=== PATIENT | male | born 1980 | race African-American/Black ===

== ENCOUNTER 2021-08-19 00:42 | Emergency (ER) | payer MEDICAID ==
[~2021-08-19] VITALS: Ht 180.3 cm; Wt 120.3 kg
[2021-08-19 02:45] LABS: BASOPHILS % 0.5 % (0.0-2.0); EOSINOPHILS % 1.2 % (0.0-5.0); HEMATOCRIT. 42.6 % (42.0-52.0); MEAN CORPUSCULAR HEMOGLOBIN 28.7 pg (28.0-32.0); MEAN CORPUSCULAR VOLUME 86.8 fL (80.0-94.0); MEAN PLATELET VOLUME 9.4 fl (7.4-10.4); MONOCYTES % 10.3 % (2.0-8.0); PLATELET 148 x1000/uL (130-400); RED CELL DISTRIBUTION WIDTH 14.3 % (11.6-14.6)
[2021-08-19 02:48] LABS: CHLORIDE 107 mEq/L (98-107)
[2021-08-19 02:56] LABS: CLARITY URINE CLEAR (CLEAR); COLOR URINE YELLOW (YELLOW); KETONES URINE NEGATIVE (NEGATIVE); LEUKOCYTE ESTERASE URINE NEGATIVE (NEGATIVE); NITRITE URINE NEGATIVE (NEGATIVE); OCCULT BLOOD URINE NEGATIVE (NEGATIVE); PH URINE 5.5 (4.5-8.0); PROTEIN URINE NEGATIVE (NEGATIVE); SPECIFIC GRAVITY URINE 1.015 (1.005-1.030); UROBILINOGEN URINE 0.2 E.U./dL (0.2-1.0)
[2021-08-19] MEDS ORDERED: ACETAMINOPHEN 325MG TABLET PO ONE (03:00)
[2021-08-19] MEDS ORDERED: HYDROCHLOROTHIAZIDE 25MG TABLET PO ONE (03:00)
[2021-08-19 03:07] LABS: *AMPHETAMINES SCREEN URINE NEGATIVE (NEGATIVE); *BARBITURATES SCREEN URINE NEGATIVE (NEGATIVE); *BENZODIAZEPINES SCREEN URINE NEGATIVE (NEGATIVE); *COCAINE SCREEN URINE NEGATIVE (NEGATIVE); METHADONE URINE SCREEN NEGATIVE (NEGATIVE); OPIATES URINE SCREEN NEGATIVE (NEGATIVE)
[2021-08-19 03:08] LABS: CANNABINOID URINE SCREEN NEGATIVE (NEGATIVE); PHENCYCLIDINE URINE SCREEN NEGATIVE (NEGATIVE)
[2021-08-19] MEDS: IBUPROFEN 400MG TABLET PO ONE ×2 (03:13→03:15)
[2021-08-19 04:08] VITALS: BP 169/72
== END 2021-08-19 04:12 | disposition home or self-care (01) ==
LOC: ER 00:42
DX: I10 Essential (primary) hypertension (principal); R51.9 Headache, unspecified
CPT/HCPCS: 36415; 80048; 80305; 81003; 85025; 99283

== ENCOUNTER 2021-08-27 10:12 | Emergency (ER) | payer BC ==
[~2021-08-27] VITALS: Ht 182.9 cm; Wt 118.1 kg
[2021-08-27] MEDS ORDERED: NAPR-1176 MT (10:37)
[2021-08-27 10:55] VITALS: BP 141/79
== END 2021-08-27 10:57 | disposition home or self-care (01) ==
LOC: ER 10:44
DX: M54.6 Pain in thoracic spine (principal); I10 Essential (primary) hypertension
CPT/HCPCS: 99282; Z7610

== ENCOUNTER 2021-08-31 12:40 | Emergency (ER) | payer BC ==
[~2021-08-31] VITALS: Ht 180.3 cm; Wt 118.8 kg
[~2021-08-31 12:40] MED LIST: NAPR-1176 MT
[2021-08-31 15:12] LABS: BASOPHILS % 0.4 % (0.0-2.0); EOSINOPHILS % 0.7 % (0.0-5.0); HEMATOCRIT. 40.4 % (42.0-52.0); HEMOGLOBIN. 13.5 g/dL (14.0-18.0); LYMPHOCYTES % 31.9 % (20.0-50.0); MEAN CORPUSCULAR HEMOGLOBIN 28.7 pg (28.0-32.0); MEAN CORPUSCULAR VOLUME 86.1 fL (80.0-94.0); MEAN PLATELET VOLUME 9.3 fl (7.4-10.4); MONOCYTES % 8.2 % (2.0-8.0); NEUTROPHILS % 58.8 % (40.0-76.0); PLATELET 160 x1000/uL (130-400); RED BLOOD CELL COUNT 4.69 mill/uL (4.7-6.1); RED CELL DISTRIBUTION WIDTH 14.5 % (11.6-14.6)
[2021-08-31 15:14] LABS: CHLORIDE 105 mEq/L (98-107)
[2021-08-31] MEDS ORDERED: HYDR25TA MT (16:12)
[2021-08-31 16:16] LABS: CLARITY URINE CLEAR (CLEAR); COLOR URINE YELLOW (YELLOW); KETONES URINE NEGATIVE (NEGATIVE); LEUKOCYTE ESTERASE URINE NEGATIVE (NEGATIVE); NITRITE URINE NEGATIVE (NEGATIVE); OCCULT BLOOD URINE NEGATIVE (NEGATIVE); PROTEIN URINE NEGATIVE (NEGATIVE); SPECIFIC GRAVITY URINE 1.003 (1.005-1.030); UROBILINOGEN URINE 0.2 E.U./dL (0.2-1.0)
[2021-08-31 16:26] VITALS: BP 146/80
== END 2021-08-31 16:29 | disposition home or self-care (01) ==
LOC: ER 12:40
DX: I10 Essential (primary) hypertension (principal)
CPT/HCPCS: 36415; 80048; 81003; 85025; 99283

== ENCOUNTER 2021-10-10 15:43 | Emergency (ER) | payer BC ==
[~2021-10-10] VITALS: Ht 180.3 cm; Wt 117.1 kg
[~2021-10-10 15:43] MED LIST changes: +HYDR25TA MT
[2021-10-10 16:10] VITALS: BP 168/82
== END 2021-10-10 17:14 | disposition left against medical advice (07) ==
LOC: ER 15:43
DX: I10 Essential (primary) hypertension (principal); Z91.14 Patient's other noncompliance with medication regimen
CPT/HCPCS: 99281

== ENCOUNTER 2021-10-30 00:21 | Emergency (ER) | payer MEDICAID ==
[~2021-10-30] VITALS: Ht 180.3 cm; Wt 116.0 kg
[2021-10-30] MEDS ORDERED: HYDROCHLOROTHIAZIDE 25MG TABLET PO ONE (01:00)
[2021-10-30 01:02] LABS: BASOPHILS % 0.4 % (0.0-2.0); HEMOGLOBIN. 13.7 g/dL (14.0-18.0); LYMPHOCYTES % 50.2 % (20.0-50.0); MEAN CORPUSCULAR HEMOGLOBIN 28.2 pg (28.0-32.0); MEAN CORPUSCULAR VOLUME 86.5 fL (80.0-94.0); MEAN PLATELET VOLUME 8.6 fl (7.4-10.4); MONOCYTES % 10.2 % (2.0-8.0); NEUTROPHILS % 38.2 % (40.0-76.0); PLATELET 149 x1000/uL (130-400); RED BLOOD CELL COUNT 4.86 mill/uL (4.7-6.1); RED CELL DISTRIBUTION WIDTH 14.6 % (11.6-14.6)
[2021-10-30 01:12] LABS: CHLORIDE 104 mEq/L (98-107)
[2021-10-30] MEDS ORDERED: HYDR25TA MT (02:19)
[2021-10-30 02:28] VITALS: BP 165/82
== END 2021-10-30 02:30 | disposition home or self-care (01) ==
LOC: ER 00:21
DX: I10 Essential (primary) hypertension (principal); R51.9 Headache, unspecified; Z91.14 Patient's other noncompliance with medication regimen
CPT/HCPCS: 36415; 80053; 85025; 93005; 99284